=== PATIENT | male | born 1945 | race Caucasian/White ===

== ENCOUNTER 2017-08-25 08:51 | Emergency (ER) | payer OTHER ==
[~2017-08-25] VITALS: Ht 190.5 cm; Wt 111.1 kg
[2017-08-25] MEDS ORDERED: ALLOPURINOL300 MG (09:27)
[2017-08-25] MEDS ORDERED: ATORVASTATIN CA40 MG (09:27)
[2017-08-25] MEDS ORDERED: GLIPIZIDE ER10 MG (09:28)
[2017-08-25] MEDS ORDERED: [UNRECOGNIZED DRUG - OTHER] (09:28)
[2017-08-25] MEDS ORDERED: SOTALOL160 MG (09:29)
[2017-08-25] MEDS ORDERED: HYDROCHLOROTHIA25 MG (09:29)
[2017-08-25] MEDS ORDERED: FORTAMET1000 MG (09:29)
[2017-08-25] MEDS ORDERED: TAMS0.4C (09:30)
== END 2017-08-25 10:15 | disposition home or self-care (01) ==
LOC: ER 08:51
DX: S01.122A Laceration with foreign body of left eyelid and periocular area, initial encounter (principal); W45.8XXA Other foreign body or object entering through skin, initial encounter; Y93.89 Activity, other specified; Y92.480 Sidewalk as the place of occurrence of the external cause; Y99.8 Other external cause status

== ENCOUNTER 2017-09-02 07:15 | Emergency (ER) | payer OTHER ==
[~2017-09-02] VITALS: Ht 190.5 cm; Wt 111.1 kg
[~2017-09-02 07:15] MED LIST: ALLOPURINOL300 MG; ATORVASTATIN CA40 MG; FORTAMET1000 MG; GLIPIZIDE ER10 MG; HYDROCHLOROTHIA25 MG; SOTALOL160 MG; TAMS0.4C; [UNRECOGNIZED DRUG - OTHER]
== END 2017-09-02 09:12 | disposition home or self-care (01) ==
LOC: ER 07:15
DX: Z48.02 Encounter for removal of sutures (principal)

== ENCOUNTER 2018-01-26 18:21 | Emergency (ER) | payer OTHER ==
[~2018-01-26] VITALS: Ht 190.5 cm; Wt 117.0 kg
== END 2018-01-26 21:58 | disposition home or self-care (01) ==
LOC: ER 18:21
DX: E11.65 Type 2 diabetes mellitus with hyperglycemia (principal); N39.0 Urinary tract infection, site not specified

== ENCOUNTER 2018-02-28 06:26 | Outpatient (CLI) | payer OTHER | END 2018-02-28 06:44 | disposition home or self-care (01) | LOC: LAB 06:26 | DX: I10 Essential (primary) hypertension (principal); D64.89 Other specified anemias; E86.0 Dehydration; E11.9 Type 2 diabetes mellitus without complications; N39.0 Urinary tract infection, site not specified; B95.61 Methicillin susceptible Staphylococcus aureus infection as the cause of diseases classified elsewhere ==